=== PATIENT | male | born 1990 | race African-American/Black ===

== ENCOUNTER 2016-07-14 23:36 | Emergency (ER) | payer OTHER ==
[~2016-07-14] VITALS: Ht 182.9 cm; Wt 88.5 kg
[2016-07-15] MEDS ORDERED: IBUPROFEN 600600 M1 PO (00:15)
[2016-07-15] MEDS ORDERED: ROBAXIN 750 MG750 M1 PO (00:15)
[2016-07-15 00:56] VITALS: BP 113/74
== END 2016-07-15 00:58 | disposition home or self-care (01) ==
LOC: ER 23:36
DX: S39.012A Strain of muscle, fascia and tendon of lower back, initial encounter (principal); S80.02XA Contusion of left knee, initial encounter; S00.33XA Contusion of nose, initial encounter; V47.6XXA Car passenger injured in collision with fixed or stationary object in traffic accident, initial encounter; Y93.I9 Activity, other involving external motion; Y92.410 Unspecified street and highway as the place of occurrence of the external cause; Y99.9 Unspecified external cause status